=== PATIENT | female | born 1950 | race Asian ===

== ENCOUNTER → 2017-02-03 | Outpatient (CLI) | payer OTHER ==
[~2017-02-03] MED LIST: ASPI81 PO; ATOR20TA86 PO; CALC1TAB15 PO; LOSA1TAB37 PO
== END | disposition home or self-care (01) ==
LOC: EMPHLTH 15:42
PROVIDERS: ATTEND Internal Medicine
DX: R76.11 Nonspecific reaction to tuberculin skin test without active tuberculosis (principal)